=== PATIENT | female | born 1955 | race Caucasian/White ===

== ENCOUNTER → 2017-01-27 13:44 | Outpatient (CLI) | payer MEDICAID | END | disposition home or self-care (01) | LOC: D.CT 13:44 | DX: R93.8 Abnormal findings on diagnostic imaging of other specified body structures (principal) ==

== ENCOUNTER 2017-02-09 11:15 | Day surgery (SDC) | payer MEDICAID ==
[2017-02-08 13:44] LABS: HEMATOCRIT 40.8 % (36.0-48.0); HEMOGLOBIN 14.3 g/dL (12-16); MCV 88.3 fL (80.0-100.0); MEAN PLATELET VOLUME 9.9 fL (7.4-10.4); RBC 4.62 10x6/uL (4.00-5.40); WBC 7.7 10x3/uL (4.8-10.8)
[2017-02-08 13:56] LABS: CALC OSMOLALITY 269 mosm/kg (275-300); CALCIUM 8.9 mg/dL (8.5-10.1); CARBON DIOXIDE 27.5 mmol/L (21.0-32.0); CHLORIDE - SERUM 100 mmol/L (98-107); CREATININE - SERUM 0.7 mg/dL (0.6-1.3); GLUCOSE 98 mg/dL (74-106); SODIUM 136 mmol/L (136-145); UREA NITROGEN 6 mg/dL (7-18); eGFR NON AFRICAN AMERICAN > 90 mL/min (90-120)
[~2017-02-09] VITALS: Ht 152.4 cm; Wt 59.4 kg
[~2017-02-09 11:15] MED LIST: LINZESS145 MCG PO; LISINOPRIL-HCTZ1 T11 PO; NORVASC5 MG PO; OMEPRAZOLE40 MG PO; ZOCOR20 MG PO
[2017-02-09 12:04] VITALS: BP 133/82; Ht 152.4 cm; Wt 59.4 kg
--- NOTE | 2017-02-09 17:32 | NUR ---
1500--PT VOIDS, IV DC'D. HATTIE SAUCEDO 4157--DISCHARGE INSTRUCTIONS GIVEN, PT VERBALIZES UNDERSTANDING. PT OFF UNIT VIA WC. HATTIE SAUCEDO
--- NOTE | 2017-02-10 09:34 | OP ---
PATIENT NAME: PRASHANT LIZ MEDICAL RECORD: [id number] :59 LOCATION:[facility] ADMISSION DATE: SURGEON: SARAVANAN BELL MD DATE OF OPERATION: 02/09/2017 SURGEON: Saravanan Bell MD ANESTHESIA: MAC by Wang Fotser CRNA. PREOPERATIVE DIAGNOSES: Gross hematuria and pelvic pain. POSTOPERATIVE DIAGNOSES: Urethral stricture, interstitial cystitis. FINDINGS: Urethral stricture, dilated to 28-Azeri. Single ureteral orifices, diffuse bladder inflammation, no bladder tumors. PROCEDURES: Urethral dilation, cystoscopy, intravesical Rimso installation 50 mL times 50% by [employer], lot #[id number], expiration date is July 2018. CLINICAL HISTORY: This is a 61-year-old female with a history of ongoing smoking. She had gross hematuria starting from about 1 month ago. There is associated pelvic pain. She is due to have a CT scan of the abdomen and pelvis done. We sent urine for cytology yesterday. She is coming in for cystoscopy today to evaluate the cause of the gross hematuria and also to possibly treat her pelvic pain with Rimso, which is an anti-inflammatory. This in case she has interstitial cystitis. Urinalysis did not show any signs of infection yesterday. We gave her IV sedation today. DESCRIPTION OF PROCEDURE: The patient was given sedation. She was placed in the dorsal lithotomy position, prepped and draped. The urethra is so tight that a 17-Azeri scope could not enter. We then used sounds from 12-Azeri up to 28-Azeri to dilate the female urethra. The scope was then able to enter through. 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 Going into the bladder, there were single ureteral orifices. There were no bladder tumors. There was diffuse bladder inflammation seen. We did empty the bladder out through the cystoscope sheath. A 16-Azeri Moore catheter was then inserted into the bladder. We then instilled 50 mL of 50% Rimso solution into the bladder. The catheter was then removed, leaving the solution in the bladder. The patient will hold the solution for about 15 minutes and then void it out. We will see her in followup next week to give her the second treatment. TRANSINT:[id number] Voice Confirmation ID: [id number] DOCUMENT ID: [id number] SARAVANAN BELL MD at 0934 CC: [id number] DICTATION DATE: 02/09/17 1359 [employer]: 02/10/17 0127 [facility] [place] 02/09/17 [place] [id number] [place] [id number]
== END 2017-02-09 15:20 | disposition home or self-care (01) ==
LOC: D.OPS 11:15 → D.PAN 13:30 → D.OPS 13:30
PROVIDERS: Anesthesiology
DX: N35.9 Urethral stricture, unspecified (principal); R31.0 Gross hematuria; N30.11 Interstitial cystitis (chronic) with hematuria; F17.200 Nicotine dependence, unspecified, uncomplicated; Z01.812 Encounter for preprocedural laboratory examination

== ENCOUNTER → 2017-02-10 21:24 | Outpatient (CLI) | payer MEDICAID ==
[2017-02-09 12:04] VITALS: BMI 25.6
== END | disposition home or self-care (01) ==
LOC: D.LABREF 21:24
DX: N39.0 Urinary tract infection, site not specified (principal)

== ENCOUNTER → 2017-02-15 10:01 | Outpatient (CLI) | payer MEDICAID ==
[2017-02-09 12:04] VITALS: BMI 25.6
== END | disposition home or self-care (01) ==
LOC: D.CT 10:01
DX: R31.0 Gross hematuria (principal)

== ENCOUNTER 2017-02-16 16:53 | Outpatient (CLI) | payer MEDICAID ==
[2017-02-09 12:04] VITALS: BMI 25.6
== END 2017-02-16 17:33 ==
LOC: D.MAMMO 16:53
DX: Z12.31 Encounter for screening mammogram for malignant neoplasm of breast (principal)

== ENCOUNTER 2021-01-11 11:15 | Outpatient (CLI) | payer BC ==
[2017-02-09 12:04] VITALS: BMI 25.6
== END 2021-01-11 23:59 | disposition home or self-care (01) ==
LOC: D.MAMMO 11:15
PROVIDERS: ATTEND Family Medicine
DX: Z12.31 Encounter for screening mammogram for malignant neoplasm of breast (principal)